=== PATIENT | female | born 1985 | race Asian ===

== ENCOUNTER 2016-04-19 00:02 | Emergency (ER) | payer OTHER ==
[~2016-04-19] VITALS: Ht 157.5 cm; Wt 63.5 kg
[2016-04-19 02:03] VITALS: BP 138/78; TEMP 98.3
== END 2016-04-19 02:05 | disposition home or self-care (01) ==
LOC: ED 00:02
DX: R00.2 Palpitations (principal); I48.91 Unspecified atrial fibrillation
CPT/HCPCS: 93005; 99282

== ENCOUNTER 2016-08-29 18:02 | Emergency (ER) | payer OTHER ==
[~2016-08-29] VITALS: Ht 157.5 cm; Wt 77.1 kg
[2016-08-29] MEDS ORDERED: ATEN25TA21 PO (19:10)
[2016-08-29 20:22] VITALS: BP 145/84; TEMP 99.7
== END 2016-08-29 20:22 | disposition home or self-care (01) ==
LOC: ED 18:02
DX: J02.9 Acute pharyngitis, unspecified (principal)
CPT/HCPCS: 99281

== ENCOUNTER 2018-06-18 07:47 | Emergency (ER) | payer OTHER ==
[~2018-06-18] VITALS: Ht 157.5 cm; Wt 104.3 kg
[~2018-06-18 07:47] MED LIST: ATEN25TA21 PO
[2018-06-18 07:59] VITALS: TEMP 97.9
[2018-06-18 09:18] LABS: PLATELET COUNT 289 K/uL (152-353)
[2018-06-18 09:24] LABS: POTASSIUM 4.6 mmol/L (3.6-5.2)
[2018-06-18 10:22] VITALS: BP 147/90
== END 2018-06-18 10:22 | disposition home or self-care (01) ==
LOC: ED 07:47
PROVIDERS: Family Medicine
DX: E05.00 Thyrotoxicosis with diffuse goiter without thyrotoxic crisis or storm (principal); J30.9 Allergic rhinitis, unspecified
CPT/HCPCS: 36415; 80053; 84436; 84443; 85027; 96374; 96375; 99284; J1885; J2930

== ENCOUNTER 2018-08-12 08:43 | Emergency (ER) | payer OTHER ==
[~2018-08-12] VITALS: Ht 157.5 cm; Wt 98.9 kg
[2018-08-12 08:46] VITALS: BP 123/84; TEMP 98.4
[2018-08-12] MEDS ORDERED: CIPR0.3S2 OPTH (09:14)
== END 2018-08-12 09:38 | disposition home or self-care (01) ==
LOC: ED 08:43
DX: H10.9 Unspecified conjunctivitis (principal)
CPT/HCPCS: 96372; 99282; J1100

== ENCOUNTER 2020-06-04 16:06 | Emergency (ER) | payer OTHER ==
[~2020-06-04] VITALS: Ht 157.5 cm; Wt 98.4 kg
[~2020-06-04 16:06] MED LIST changes: +CIPR0.3S2 OPTH
[2020-06-04 17:05] VITALS: BP 154/85; TEMP 98.3
== END 2020-06-04 17:05 | disposition home or self-care (01) ==
LOC: ED 16:06
DX: J02.9 Acute pharyngitis, unspecified (principal); H92.02 Otalgia, left ear
CPT/HCPCS: 87651; 99282; 99283

== ENCOUNTER 2020-11-11 11:29 | Outpatient (CLI) | payer OTHER | END 2020-11-11 19:38 | disposition home or self-care (01) | LOC: RAD 11:29 | PROVIDERS: ATTEND Nurse Practitioner Family | DX: R05 Cough (principal) ==

== ENCOUNTER 2022-01-08 02:01 | Emergency (ER) | payer OTHER ==
[~2022-01-08] VITALS: Ht 157.5 cm; Wt 86.2 kg
[2022-01-08 04:15] VITALS: BP 146/90; TEMP 98.2
== END 2022-01-08 04:15 | disposition home or self-care (01) ==
LOC: ED 02:01
DX: J20.9 Acute bronchitis, unspecified (principal); J02.9 Acute pharyngitis, unspecified
CPT/HCPCS: 87502; 87651; 99283